=== PATIENT | male | born 1990 | race Caucasian/White ===

== ENCOUNTER 2017-09-14 19:51 | Emergency (ER) | payer OTHER ==
[2017-09-14 20:02] VITALS: BP 149/87; PULSE 118; RESP 20; TEMP 98.2
--- NOTE | 2017-09-14 20:44 | ED ---
General Adult HPI - General Chief complaint: Skin/Abscess/Foreign Body Stated complaint: poss infection in arm Time Seen by Provider: 09/14/17 20:03 Source: patient, RN notes reviewed, old records reviewed Mode of arrival: ambulatory Limitations: no limitations - History of Present Illness Initial comments: This is a 27-year-old male to the ER for evaluation presents today for evaluation regards to possible section, possible infection versus abscess right upper extremity. Patient does admit to positive heroin injection, does have pain since. No significant erythema no fevers. Patient was evaluated in urgent care sent to ER for further evaluation - Related Data Home Medications Medication Instructions Recorded Confirmed Ibuprofen [Motrin] 800 mg PO TID PRN 09/14/17 09/14/17 Allergies Allergy/AdvReac Type Severity Reaction Status Date / Time No Known Allergies Allergy Verified 09/14/17 20:34 Review of Systems ROS Statement: Those systems with pertinent positive or pertinent negative responses have been documented in the HPI. ROS Other: All systems not noted in ROS Statement are negative. Past Medical History Past Medical History: No Reported History Additional Past Medical History / Comment(s): endocarditis History of Any Multi-Drug Resistant Organisms: None Reported Additional Past Surgical History / Comment(s): hand sx Past Psychological History: No Psychological Hx Reported Smoking Status: Current every day smoker Past Alcohol Use History: Rare Past Drug Use History: Heroin, IV Drug Use General Exam Limitations: no limitations General appearance: alert, in no apparent distress Head exam: Present: atraumatic, normocephalic, normal inspection Eye exam: Present: normal appearance, PERRL, EOMI. Absent: scleral icterus, conjunctival injection, periorbital swelling ENT exam: Present: normal exam, mucous membranes moist Neck exam: Present: normal inspection. Absent: tenderness, meningismus, lymphadenopathy Respiratory exam: Present: normal lung sounds bilaterally. Absent: respiratory distress, wheezes, rales, rhonchi, stridor Cardiovascular Exam: Present: regular rate, normal rhythm, normal heart sounds. Absent: systolic murmur, diastolic murmur, rubs, gallop, clicks GI/Abdominal exam: Present: soft, normal bowel sounds. Absent: distended, tenderness, guarding, rebound, rigid Extremities exam: Present: normal inspection, full ROM, normal capillary refill , other (Patient does have mild bump right upper extremity). Absent: tenderness , pedal edema, joint swelling, calf tenderness Back exam: Present: normal inspection Neurological exam: Present: alert, oriented X3, CN II-XII intact Psychiatric exam: Present: normal affect, normal mood Skin exam: Present: warm, dry, intact, normal color. Absent: rash Course Vital Signs 09/14/17 19:58 Temperature 98.2 F Pulse Rate 118 H Respiratory 20 Rate Blood Pressure 149/87 O2 Sat by Pulse 100 Oximetry Medical Decision Making - Medical Decision Making 27 male admits to heroin use 3 days ago, no erythematous I, does have mild lump , likely hematoma ultrasound shows no abscess, patient to be discharged home - Radiology Data Radiology results: report reviewed (Ultrasound right upper extremity negative for abscess), image reviewed Disposition Clinical Impression: Traumatic hematoma of right upper arm Disposition: HOME SELF-CARE Condition: Good Instructions: Hematoma (ED) Is patient prescribed a controlled substance at d/c from ED?: No Referrals: None,Stated [Primary Care Provider] - 1-2 days
--- NOTE | 2017-09-14 21:00 | US ---
EXAMINATION TYPE: US extremity nonvasc mass RT DATE OF EXAM: 09/14/2017 COMPARISON: NONE CLINICAL HISTORY: Pain. Right arm lump at elbow. No masses seen at this time on exam. IMPRESSION: Exam fails to demonstrate a solid or cystic mass in the area of concern in the region of the lump.
== END 2017-09-14 21:36 | disposition home or self-care (01) ==
LOC: EC 19:51
DX: T80.89XA Other complications following infusion, transfusion and therapeutic injection, initial encounter (principal); F11.90 Opioid use, unspecified, uncomplicated; F17.200 Nicotine dependence, unspecified, uncomplicated; Y84.8 Other medical procedures as the cause of abnormal reaction of the patient, or of later complication, without mention of misadventure at the time of the procedure
CPT/HCPCS: 99284

== ENCOUNTER 2018-02-07 15:16 | Emergency (ER) | payer OTHER ==
[2018-02-07 15:23] VITALS: BP 103/67; PULSE 98; RESP 16; TEMP 98.2
--- NOTE | 2018-02-07 16:06 | ED ---
URI HPI - General Chief Complaint: Upper Respiratory Infection Stated Complaint: cough Time Seen by Provider: 02/07/18 15:37 Source: patient, RN notes reviewed Mode of arrival: ambulatory Limitations: no limitations - History of Present Illness Initial Comments: This is a 27-year-old male who presents to the emergency department with chief complaint of cough. Patient states states he was here last week and diagnosed with acute bronchitis. He states that he was on a 5 day course of prednisone. Patient states that he finished the course 2-3 days ago. He states that his cough is not resolving. He states that he has been coughing for a total of 3 weeks. Reports coughing up a thick, white substance. Patient also complains of headache and sinus pain. Denies any fevers or chills, chest pain or shortness of breath, abdominal pain, nausea or vomiting, runny nose or ear pain. - Related Data Previous Rx's Medication Instructions Recorded Albuterol Inhaler [Ventolin Hfa 1 - 2 puff INHALATION Q6HR PRN #1 02/07/18 Inhaler] inhaler Allergies Allergy/AdvReac Type Severity Reaction Status Date / Time No Known Allergies Allergy Verified 02/07/18 15:34 Review of Systems ROS Statement: Those systems with pertinent positive or pertinent negative responses have been documented in the HPI. ROS Other: All systems not noted in ROS Statement are negative. Past Medical History Past Medical History: No Reported History Additional Past Medical History / Comment(s): endocarditis History of Any Multi-Drug Resistant Organisms: None Reported Past Surgical History: Orthopedic Surgery Additional Past Surgical History / Comment(s): hand sx Past Psychological History: No Psychological Hx Reported Smoking Status: Current every day smoker Past Alcohol Use History: None Reported Past Drug Use History: None Reported, Heroin, IV Drug Use General Exam - General Exam Comments Initial Comments: General: Awake and alert, well-developed; in no apparent distress. HEENT: Head atraumatic, normocephalic. Pupils are equal, round and reactive to light. Extraocular movements intact. Oropharynx moist without erythema or exudate. Bilateral TMs pearly without effusion. Neck: Supple. Normal ROM. Cardiovascular: Regular rate and rhythm. No murmurs, rubs or gallops. Chest symmetrical. Respiratory: Mild wheezes right lower lobe. No rales or rhonchi. Normal respiratory effort with no use of accessory muscles. Musculoskeletal: Normal ROM, no tenderness bilateral upper and lower extremities. Ambulating normally. Skin: [place], warm and dry without rashes or lesions. Neurological: Alert and oriented x3. CN II-XII grossly intact. Speech is fluent and answers are appropriate. No focal neuro deficits. Psychiatric: Normal mood and affect. No overt signs of depression or anxiety noted. Limitations: no limitations Course Vital Signs 02/07/18 15:20 Temperature 98.2 F Pulse Rate 98 Respiratory 16 Rate Blood Pressure 103/67 O2 Sat by Pulse 95 Oximetry Medical Decision Making - Medical Decision Making This is a 27-year-old male who presents to the emergency department with chief complaint of cough. Patient was diagnosed with acute bronchitis last week and was given a course of steroids. Patient has finished the steroids but continues to complain of a cough. No fevers or chills. He repeat chest x-ray was obtained which reveals no acute abnormalities. Educated patient that cough with bronchitis may linger for a month. Patient will be provided a prescription for albuterol inhaler. Recommended following up with his primary care provider. Patient's vitals are stable and he is in no acute distress. He will be discharged home at this time. He is in agreement and voices understanding. All questions answered. - Radiology Data Radiology results: report reviewed, image reviewed Chest x-ray impression: No acute cardiopulmonary process. Disposition Clinical Impression: Bronchitis Disposition: HOME SELF-CARE Condition: Good Instructions: Acute Bronchitis (ED) Additional Instructions: Please take medications as prescribed. Please follow up with primary care provider within 1-2 days. Return to emergency department if symptoms should worsen or any concerns arise. Prescriptions: Albuterol Inhaler [Ventolin Hfa Inhaler] 1 - 2 puff INHALATION Q6HR PRN #1 inhaler PRN Reason: Wheezing Is patient prescribed a controlled substance at d/c from ED?: No Referrals: Hemant Martinez Jr, DO [Primary Care Provider] - 1-2 days Time of Disposition: 16:48
--- NOTE | 2018-02-07 16:23 | XR ---
EXAMINATION TYPE: XR chest 2V DATE OF EXAM: 02/07/2018 COMPARISON: 01/30/2018 HISTORY: 27-year-old male with cough TECHNIQUE: Frontal and lateral views FINDINGS: The cardiomediastinal silhouette, aorta, and pulmonary vasculature are within normal limits. Lungs an d pleural spaces are clear. IMPRESSION: No acute cardiopulmonary process.
== END 2018-02-07 16:58 | disposition home or self-care (01) ==
LOC: EC 15:16
DX: J40 Bronchitis, not specified as acute or chronic (principal); F17.200 Nicotine dependence, unspecified, uncomplicated
CPT/HCPCS: 71046; 99283

== ENCOUNTER 2020-04-22 18:30 | Emergency (ER) | payer OTHER ==
[2020-04-22 18:35] VITALS: RESP 18
[2020-04-22] MEDS ORDERED: FAMOTIDINE 20 MG TAB PO STA (19:10)
--- NOTE | 2020-04-22 19:21 | ED ---
General Adult HPI - General Chief complaint: Abdominal Pain Stated complaint: Abd Pain Time Seen by Provider: 04/22/20 18:35 Source: patient, RN notes reviewed, old records reviewed Mode of arrival: ambulatory Limitations: no limitations - History of Present Illness Initial comments: This is a 29-year-old male who presents emergency department saying he has had intermittent abdominal pain for 2 weeks. Patient states he does not have any pain currently. Patient states he has had no nausea or vomiting or diarrhea. Patient denies any fever or chills per patient's chest pain or difficulty breathing. Patient states he has quite a bit heartburn. Patient states he has not been taking any type of histamine chapin or proton pump inhibitor. Current ly patient has no symptoms - Related Data Previous Rx's Medication Instructions Recorded Albuterol Inhaler (Mhu) [Ventolin 1 - 2 puff INHALATION Q6HR PRN #1 02/07/18 Hfa Inhaler (Mhu)] inhaler Famotidine [Pepcid] 20 mg PO DAILY 20 Days #20 tablet 04/22/20 Allergies Allergy/AdvReac Type Severity Reaction Status Date / Time No Known Allergies Allergy Verified 04/22/20 18:35 Review of Systems ROS Statement: Those systems with pertinent positive or pertinent negative responses have been documented in the HPI. ROS Other: All systems not noted in ROS Statement are negative. Past Medical History Past Medical History: No Reported History Additional Past Medical History / Comment(s): endocarditis History of Any Multi-Drug Resistant Organisms: None Reported Past Surgical History: Orthopedic Surgery Additional Past Surgical History / Comment(s): hand sx Past Psychological History: No Psychological Hx Reported Smoking Status: Current some day smoker Past Alcohol Use History: None Reported Past Drug Use History: None Reported, Heroin, IV Drug Use General Exam - General Exam Comments Initial Comments: GENERAL: Patient is well-developed and well-nourished. Patient is nontoxic and well- hydrated and is in no acute distress. ENT: Neck is soft and supple. No significant lymphadenopathy is noted. Oropharynx is clear. Moist mucous membranes. Neck has full range of motion without eliciting any pain. There is no thyroid enlargement and no masses were felt. EYES: The sclera were anicteric and conjunctiva were pink and moist. Extraocular movements were intact and pupils were equal round and reactive to light. Eyelids were unremarkable. PULMONARY: Unlabored respirations. Good breath sounds bilaterally. No audible rales rhonchi or wheezing was noted. CARDIOVASCULAR: There is a regular rate and rhythm without any murmurs gallops or rubs. ABDOMEN: Soft and nontender with normal bowel sounds. SKIN: Skin is clear with no lesions or rashes and otherwise unremarkable. NEUROLOGIC: Patient is alert and oriented x3. Cranial nerves II through XII are grossly intact. Motor and sensory are also intact. Normal speech, volume and content. Symmetrical smile. MUSCULOSKELETAL: Normal extremities with adequate strength and full range of motion. No lower extremity swelling or edema. No calf tenderness. LYMPHATICS: No significant lymphadenopathy is noted PSYCHIATRIC: Normal psychiatric evaluation. Limitations: no limitations Course Vital Signs 04/22/20 18:32 Temperature 98.3 F Pulse Rate 74 Respiratory 18 Rate Blood Pressure 130/72 O2 Sat by Pulse 98 Oximetry Medical Decision Making - Medical Decision Making KUB showed no acute abnormality. Patient was asymptomatic throughout his ED stay Disposition Clinical Impression: Abdominal pain Disposition: HOME SELF-CARE Condition: Good Instructions (If sedation given, give patient instructions): Abdominal Pain (ED) Prescriptions: Famotidine [Pepcid] 20 mg PO DAILY 20 Days #20 tablet Is patient prescribed a controlled substance at d/c from ED?: No Referrals: Hemant Martinez Jr, DO [Doctor of Osteopathic Medicine] - 1-2 days Time of Disposition: 19:21
--- NOTE | 2020-04-22 19:44 | XR ---
EXAMINATION TYPE: XR KUB DATE OF EXAM: 04/22/2020 COMPARISON: 12/06/2012 HISTORY: Abdominal pain TECHNIQUE: 2 views upright FINDINGS: There is no sign of intestinal obstruction or pneumoperitoneum. Fecal pattern is normal. Th ere is no sign of a mass. Lung bases are clear. There are no pathologic calcifications over the kidneys. IMPRESSION: Nonacute abdomen. No change.
[2020-04-22 20:49] VITALS: BP 128/70; PULSE 70; TEMP 98.2
== END 2020-04-22 20:42 | disposition home or self-care (01) ==
LOC: EC 18:30
DX: R10.9 Unspecified abdominal pain (principal); R12 Heartburn; F17.200 Nicotine dependence, unspecified, uncomplicated
CPT/HCPCS: 74018; 99284

== ENCOUNTER 2020-10-23 01:26 | Emergency (ER) | payer OTHER ==
[2020-10-23 01:31] VITALS: PULSE 108; RESP 20; TEMP 98.5
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
== END 2020-10-23 02:46 | disposition home or self-care (01) ==
LOC: EC 01:26
DX: Z02.89 Encounter for other administrative examinations (principal); F17.200 Nicotine dependence, unspecified, uncomplicated
CPT/HCPCS: 99283

== ENCOUNTER 2022-01-14 19:26 | Emergency (ER) | payer OTHER ==
[2022-01-14] MEDS ORDERED: SODIUM CHLORIDE 0.9% 1,000 ML IV STA ×2 (19:37)
[2022-01-14 19:40] VITALS: PULSE 88; TEMP 98.1
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
[2022-01-14 20:09] LABS: Basophils % (A) 0 %; Eosinophils % (A) 0 %; HCT 39.4 % (39.0-53.0); Lymphocytes # (A) 0.9 k/uL (1.0-4.8); Lymphocytes % (A) 6 %; MCH 32.9 pg (25.0-35.0); MCHC 32.9 g/dL (31.0-37.0); MCV 99.7 fL (80.0-100.0); Monocytes # (A) 0.6 k/uL (0-1.0); Monocytes % (A) 4 %; Neutrophils # (A) 12.8 k/uL (1.3-7.7); Neutrophils % (A) 89 %; Platelet Count 411 k/uL (150-450); RBC 3.95 m/uL (4.30-5.90); RDW 12.6 % (11.5-15.5); WBC 14.4 k/uL (3.8-10.6)
[2022-01-14 20:18] LABS: ALT 42 U/L (4-49); AST 36 U/L (17-59); African American GFR (CKD) >90 (>60 ml/min/1.73 sqM); Albumin 4.5 g/dL (3.5-5.0); Alkaline Phosphatase 68 U/L (38-126); Anion Gap 13 mmol/L; Blood Urea Nitrogen 20 mg/dL (9-20); Calcium 8.6 mg/dL (8.4-10.2); Carbon Dioxide 23 mmol/L (22-30); Chloride 104 mmol/L (98-107); Creatine Kinase 130 U/L (55-170); Glucose 157 mg/dL (74-99); Non-African American GFR(CKD) 80 (>60 ml/min/1.73 sqM); Potassium 4.1 mmol/L (3.5-5.1); Sodium 140 mmol/L (137-145); Total Bilirubin 0.5 mg/dL (0.2-1.3)
[2022-01-14 21:44] VITALS: BP 127/69; RESP 15
== END 2022-01-14 21:44 | disposition home or self-care (01) ==
LOC: EC 19:26
DX: T40.1X1A Poisoning by heroin, accidental (unintentional), initial encounter (principal); F17.200 Nicotine dependence, unspecified, uncomplicated
CPT/HCPCS: 36415; 80053; 82550; 83605; 85025; 96360; 99284

== ENCOUNTER 2022-05-23 14:32 | Emergency (ER) | payer OTHER ==
[2022-05-23 14:48] VITALS: TEMP 98.4
[2022-05-23] MEDS ORDERED: KETOROLAC 15 MG/ML 1 ML VIAL IVP STA (15:25)
[2022-05-23] MEDS ORDERED: methylPREDNISolone SOD SUCCI 125 MG/2 ML VIAL IM ONE (15:25)
[2022-05-23] MEDS ORDERED: methocarbamoL 500 MG TAB PO STA (15:25)
--- NOTE | 2022-05-23 15:52 | XR ---
EXAMINATION TYPE: XR chest 2V DATE OF EXAM: 05/23/2022 COMPARISON: 12/31/2021 HISTORY: Chest pain TECHNIQUE: 2 views FINDINGS: Heart and mediastinum are normal. Lungs are clear. Diaphragm is normal. Bony thorax is inta ct. IMPRESSION: Normal chest. No change.
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
[2022-05-23 16:37] VITALS: BP 125/68; PULSE 65; RESP 16
== END 2022-05-23 16:37 | disposition home or self-care (01) ==
LOC: EC 14:32
DX: M94.0 Chondrocostal junction syndrome [Tietze] (principal); F17.200 Nicotine dependence, unspecified, uncomplicated
CPT/HCPCS: 93005; 71046; 99285; 96374; 96372; J2930; J1885

== ENCOUNTER 2022-10-19 15:39 | Emergency (ER) | payer OTHER ==
[2022-10-19 16:09] VITALS: RESP 18
--- NOTE | 2022-10-19 17:06 | ED ---
General Adult HPI - General Chief complaint: Recheck/Abnormal Lab/Rx Stated complaint: withdraw Time Seen by Provider: 10/19/22 16:24 Source: patient, RN notes reviewed Mode of arrival: ambulatory Limitations: no limitations - History of Present Illness Initial comments: 32-year-old male with past medical history significant for polysubstance abuse presents to the emergency department the chief complaint of medication refill. Patient reports that he has been taking methadone. He reports that over the long holiday weekend he missed a dose. He is reporting that he has been taking 120 mg daily. However (4:30 that he missed his requesting a refill 60 mg. He reports that he has a follow-up appointment with his behavioral health and rehab facility tomorrow. Patient denies any specific complaints at this time. Denies chest pain, headache, shortness of breath, fever, chills. - Related Data Home Medications Medication Instructions Recorded Confirmed Methadone HCl [Methadone Intensol] 120 mg PO DAILY 09/26/22 10/19/22 Previous Rx's Medication Instructions Recorded Naloxone HCl [Narcan] 4 mg NASAL ONCE #1 each 10/19/22 Allergies Allergy/AdvReac Type Severity Reaction Status Date / Time No Known Allergies Allergy Verified 10/19/22 16:09 Review of Systems ROS Statement: Those systems with pertinent positive or pertinent negative responses have been documented in the HPI. ROS Other: All systems not noted in ROS Statement are negative. Past Medical History Past Medical History: No Reported History Additional Past Medical History / Comment(s): endocarditis History of Any Multi-Drug Resistant Organisms: MRSA Date of last positivie culture/infection: 2019 MDRO Source:: generalized Past Surgical History: Orthopedic Surgery Additional Past Surgical History / Comment(s): hand sx Past Anesthesia/Blood Transfusion Reactions: Unable to Obtain Past Psychological History: No Psychological Hx Reported Smoking Status: Current every day smoker, Vaper Past Alcohol Use History: None Reported Past Drug Use History: None Reported, Heroin, IV Drug Use - Past Family History Father Family Medical History: No Reported History Additional Family Medical History / Comment(s): denies any family history of cardiac disease Mother Family Medical History: No Reported History General Exam - General Exam Comments Initial Comments: General: Alert, in no acute distress Head: atraumatic normocephalic. Eyes PERRL, EOMI intact, mucous membranes moist Respiratory: Lungs clear to auscultation bilaterally Cardiovascular: Heart rate regular rate and rhythm Abdominal: Soft without guarding or rebound Extremities: Normal inspection with full range of motion and normal capillary refill Neuroogic: alert and oriented 3, CN II-XII intact, able to ambulate with steady gait Skin: warm dry and intact with normal color Limitations: no limitations Course Vital Signs 10/19/22 10/19/22 16:05 18:21 Temperature 98.4 F 98.2 F Pulse Rate 70 64 Respiratory 18 18 Rate Blood Pressure 98/61 130/75 O2 Sat by Pulse 98 100 Oximetry Medical Decision Making - Medical Decision Making Was pt. sent in by a medical professional or institution (, [facility], [employer], urgent care, hospital, or assisted...) When possible be specific @ -[No] Did you speak to anyone other than the patient for history (EMS, parent, family, police, friend...)? What history was obtained from this source @ -[No] Did you review nursing and triage notes (agree or disagree)? Why? @ -[I reviewed and agree with nursing and triage notes] Were old charts reviewed (outside hosp., previous admission, EMS record, old EKG, old radiological studies, urgent care reports/EKG's, assisted records)? Report findings @ -[No old charts were reviewed] Differential Diagnosis (chest pain, altered mental status, abdominal pain women, abdominal pain men, vaginal bleeding, weakness, fever, dyspnea, syncope, headache, dizziness, GI bleed, back pain, seizure, CVA, palpatations, mental health, musculoskeletal)? @ -[not applicable] EKG interpreted by me (3pts min.). @ -[As above] X-rays interpreted by me (1pt min.). @ -[None done] CT interpreted by me (1pt min.). @ -[None done] U/S interpreted by me (1pt. min.). @ -[None done] What testing was considered but not performed or refused? (CT, X-rays, U/S, labs)? Why? @ -[None] What meds were considered but not given or refused? Why? @ -[None] Did you discuss the management of the patient with other professionals (professionals i.e. , PA, BOAT ASSEMBLER, lab, RT, psych nurse, psychiatric social worker supervisor, tank riveter, teacher, transit police officer, field nurse case manager)? Give summary @ -[No] Was smoking cessation discussed for >3mins.? @ -[No] Was critical care preformed (if so, how long)? @ -[No] Were there social determinants of health that impacted care today? How? (Homelessness, low income, unemployed, alcoholism, drug addiction, transportation, low edu. Level, literacy, decrease access to med. care, longterm, rehab)? @ -[No] Was there de-escalation of care discussed even if they declined (Discuss DNR or withdrawal of care, Hospice)? DNR status @ -[No] What co-morbidities impacted this encounter? (DM, HTN, Smoking, COPD, CAD, Cancer, CVA, ARF, Chemo, Hep., AIDS, mental health diagnosis, sleep apnea, morbid obesity)? @ -[None] Was patient admitted / discharged? Hospital course, mention meds given and route, prescriptions, significant lab abnormalities, going to OR and other pertinent info. @ -Discharged. This is a 32-year-old male who presents the emergency department with medication refill . Patient had a thorough history and physical exam performed in the ED. Physical exam essentially unremarkable. Patient was given 60 mg of methadone with a prescription for Narcan per pharmacy recommendation. Return precautions were discussed at length. Patient discharged in stable condition. Case discussed with Dr. Aquino [facility] who agrees with plan of care Undiagnosed new problem with uncertain prognosis? @ -[No] Drug Therapy requiring intensive monitoring for toxicity (Heparin, Nitro, Insulin, Cardizem)? @ -[No] Were any procedures done? @ -[No] Diagnosis/symptom? @ -Medication Re-fill Acute, or Chronic, or Acute on Chronic? @ -Acute Uncomplicated (without systemic symptoms) or Complicated (systemic symptoms)? @ -Uncomplicated Side effects of treatment? @ -[No] Exacerbation, Progression, or Severe Exacerbation? @ -[No] Poses a threat to life or bodily function? How? (Chest pain, [place], [place], pneumonia, PE, COPD, DKA, ARF, appy, cholecystitis, CVA, Diverticulitis, Homicidal, Suicidal, threat to staff... and all critical care pts) @ -Low likelihood Disposition Clinical Impression: Encounter for medication refill Disposition: HOME SELF-CARE Condition: Stable Additional Instructions: Please follow-up with medical behavioral health systems tomorrow Please return to the emergency department if symptoms worsen or persist Prescriptions: Naloxone HCl [Narcan] 4 mg NASAL ONCE #1 each Is patient prescribed a controlled substance at d/c from ED?: No Referrals: [facility] [Primary Care Provider] - 1-2 days Time of Disposition: 17:06
[2022-10-19] MEDS ORDERED: METHADONE 10 MG TAB PO ONE (18:00)
[2022-10-19 18:22] VITALS: BP 130/75; PULSE 64; TEMP 98.2
[2022-10-20] MEDS ORDERED: METHADONE 5 MG TAB PO SCH (09:00)
== END 2022-10-19 20:04 | disposition home or self-care (01) ==
LOC: EC 15:39
DX: Z76.0 Encounter for issue of repeat prescription (principal); F17.290 Nicotine dependence, other tobacco product, uncomplicated
CPT/HCPCS: 99283; S0109